=== PATIENT | male | born 1980 | race American Indian/Alaskan Native ===

== ENCOUNTER 2018-10-11 07:44 | Emergency (ER) | payer BC, OTHER ==
[2018-10-11] MEDS ORDERED: IBUPROFEN PO ONE (09:02)
[2018-10-11] MEDS ORDERED: NORCO 5/325 PO ONE (09:02)
[2018-10-11] MEDS ORDERED: ZOFRAN ODT PO ONE (09:02)
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
--- NOTE | 2018-10-11 09:45 | XRay Report ---
AP AND LATERAL CERVICAL SPINE: History: Neck pain. The vertebral bodies are well mineralized and normal in alignment and vertebral height with well preserved interspace distances. The visualized portions of the posterior elements are normal. IMPRESSION: Unremarkable cervical spine films.
[2018-10-11 12:31] VITALS: BP 152/132
== END 2018-10-11 12:32 | disposition home or self-care (01) ==
LOC: ED 07:44
DX: S16.1XXA Strain of muscle, fascia and tendon at neck level, initial encounter (principal); M54.6 Pain in thoracic spine; V49.49XA Driver injured in collision with other motor vehicles in traffic accident, initial encounter; Y93.89 Activity, other specified; Y92.89 Other specified places as the place of occurrence of the external cause; Y99.8 Other external cause status
CPT/HCPCS: 72040; Q0162

== ENCOUNTER 2019-08-04 19:03 | Emergency (ER) | payer BC ==
--- NOTE | 2019-08-04 19:51 | Event Note ---
ED Screening Note Date of service: 08/04/19 ED Screening Note: This initial assessment/diagnostic orders/clinical plan/treatment(s) is/are subject to change based on patients health status, clinical progression and re- assessment by fellow clinical providers in the ED. Further treatment and workup at subsequent clinical providers discretion. Patient/guardian urged not to elope from the ED as their condition may be serious if not clinically assessed and managed. Initial orders include: 38yo BM states that he has L upper jaw pain and swelling x 1 day. He states that he took NSAIDs earlier with no relief.
[2019-08-04] MEDS ORDERED: oxyCODONE /ACETAMINOPHEN 5-325MG TAB PO ONE (22:00)
[2019-08-04] MEDS ORDERED: AMOXICILLIN/K CLAV 875/125MG TAB PO ONE (22:00)
[2019-08-04] MEDS ORDERED: IBUPROFEN 600 MG TAB PO ONE (22:00)
--- NOTE | 2019-08-04 22:00 | Emergency Department Report ---
ED ENT HPI - General Chief complaint: Dental/Oral Stated complaint: TOOTHACHE W/FACIAL SWELLING Time Seen by Provider: 08/04/19 21:23 Source: patient Mode of arrival: Ambulatory Limitations: No Limitations - History of Present Illness Initial comments: This is a 38-year-old gentleman. This patient is not known to this provider previously. He presents to the emergency room with a complaint of a few days' dental pain, over teeth #12, 13, 14, associated facial swelling. He has no neck pain, tongue pain or throat pain. He does not endorse sensitivity to cold or hot. He has no mandibular pain. His pain is sharp and throbbing, increases with palpation and decreases with rest. He indicates he is able to eat and drink without significant difficulty. MD complaint: tooth pain -: Gradual, days(s) Location: tooth # (12,13,14) Severity: moderate Quality: aching Consistency: intermittent Improves with: rest Worsens with: eating, movement Context- Dental: history of dental caries Associated Symptoms: gum swelling, toothache. denies: fever, cough, pain with swallowing, sore throat, tinnitus, hearing loss, discharge from ear, rhinorrhea - Related Data Previous Rx's Medication Instructions Recorded Last Taken Type Cyclobenzaprine [Flexeril] 10 mg PO TID PRN #20 tablet 10/11/18 Unknown Rx HYDROcodone/APAP 5-325 [[place] 1 each PO Q4HR PRN #10 tablet 10/11/18 Unknown Rx 5/325] Ibuprofen 800 mg PO TID 5 Days #15 tablet 10/11/18 Unknown Rx Allergies Allergy/AdvReac Type Severity Reaction Status Date / Time No Known Allergies Allergy Unverified 10/11/18 07:49 ED Dental HPI - General Chief complaint: Dental/Oral Stated complaint: TOOTHACHE W/FACIAL SWELLING Time Seen by Provider: 08/04/19 21:23 Source: patient Mode of arrival: Ambulatory Limitations: No Limitations - Related Data Previous Rx's Medication Instructions Recorded Last Taken Type Cyclobenzaprine [Flexeril] 10 mg PO TID PRN #20 tablet 10/11/18 Unknown Rx HYDROcodone/APAP 5-325 [[place] 1 each PO Q4HR PRN #10 tablet 10/11/18 Unknown Rx 5/325] Ibuprofen 800 mg PO TID 5 Days #15 tablet 10/11/18 Unknown Rx Allergies Allergy/AdvReac Type Severity Reaction Status Date / Time No Known Allergies Allergy Unverified 10/11/18 07:49 ED Review of Systems ROS: Stated complaint: TOOTHACHE W/FACIAL SWELLING Other details as noted in HPI Constitutional: denies: fever ENT: dental pain. denies: ear pain, throat pain, congestion Cardiovascular: denies: syncope Gastrointestinal: denies: abdominal pain ED Past Medical Hx - Past Medical History Previous Medical History?: No - Surgical History Past Surgical History?: No - Social History Smoking Status: Light Tobacco Smoker - Medications Home Medications: Home Medications Medication Instructions Recorded Confirmed Last Taken Type Cyclobenzaprine [Flexeril] 10 mg PO TID PRN #20 tablet 10/11/18 Unknown Rx HYDROcodone/APAP 5-325 [[place] 1 each PO Q4HR PRN #10 tablet 10/11/18 Unknown Rx 5/325] Ibuprofen 800 mg PO TID 5 Days #15 tablet 10/11/18 Unknown Rx ED Physical Exam - General Limitations: No Limitations General appearance: alert, in no apparent distress - Head Head exam: Present: atraumatic, normocephalic - Eye Eye exam: Present: normal appearance, EOMI. Absent: nystagmus - ENT ENT exam: Present: mucous membranes moist, normal external ear exam, other (patient has a number of dental caries, poor dentition, and is tender over teeth 11, 12, 13, 14, 15. There is gingival tenderness. There is reactive left-sided buccal swelling and tenderness.). Absent: normal exam - Neck Neck exam: Present: normal inspection, full ROM, other (the neck is supple. The trachea is nontender. The patient speaking in full sentences. There is no tenderness underneath the base of the tongue.). Absent: tenderness, meningismus - Respiratory Respiratory exam: Present: normal lung sounds bilaterally. Absent: respiratory distress - Cardiovascular Cardiovascular Exam: Present: regular rate, normal rhythm, normal heart sounds. Absent: bradycardia, tachycardia, irregular rhythm, systolic murmur, diastolic murmur, rubs, gallop - GI/Abdominal GI/Abdominal exam: Present: soft. Absent: distended, tenderness, guarding, rebound, rigid, pulsatile mass - Rectal Rectal exam: Present: deferred - Extremities Exam Extremities exam: Present: normal inspection, full ROM, other (2+ pulses noted in the bilateral upper extremities. There is no long bony tenderness. Muscular compartments are soft.) - Back Exam Back exam: Present: normal inspection, full ROM. Absent: tenderness, CVA tenderness (R), CVA tenderness (L), paraspinal tenderness, vertebral tenderness - Neurological Exam Neurological exam: Present: alert, other (there is no facial droop. The tongue is midline. Extraocular movements are intact bilaterally. Patient speaking in full complete sentences. Shoulder shrug is intact bilaterally. Hearing is grossly intact bilaterally. Visual acuity intact to finger counting and color perception at a close distance. 5/5 strength 4 extremities. Sensation intact to light touch in 4 extremities.) - Psychiatric Psychiatric exam: Present: normal affect, normal mood - Skin Skin exam: Present: warm, dry, intact, normal color. Absent: rash ED Course Vital Signs 08/04/19 08/04/19 08/04/19 19:33 19:47 22:22 Temperature 98.3 F 98.8 F Pulse Rate 89 90 Respiratory 16 18 18 Rate Blood Pressure 188/99 160/100 O2 Sat by Pulse 97 97 Oximetry 08/04/19 22:23 Temperature Pulse Rate Respiratory 18 Rate Blood Pressure O2 Sat by Pulse Oximetry ED Medical Decision Making - Lab Data Vital Signs 08/04/19 08/04/19 08/04/19 19:33 19:47 22:22 Temperature 98.3 F 98.8 F Pulse Rate 89 90 Respiratory 16 18 18 Rate Blood Pressure 188/99 160/100 O2 Sat by Pulse 97 97 Oximetry 08/04/19 22:23 Temperature Pulse Rate Respiratory 18 Rate Blood Pressure O2 Sat by Pulse Oximetry - Medical Decision Making Differential diagnosis, including but not limited to: Dental caries, gingivitis, odontogenic infection, hypertension, reactive elevated blood pressure Assessment and plan: 38-year-old gentleman with probable dental infection, with reactive soft tissue swelling. He is afebrile with otherwise reassuring vital signs. Hypertension is improving on its own without significant intervention. Please reference the [employer] clinical policy on hypertension which is not acutely symptomatic or decompensated. The patient has no indication of deep space neck infection at this time, he is protecting his airway, and there is no neck pain, tenderness or discomfort. He will be started on antibiotics, chlorhexidine mouthwash, we will give him pain medicine, he was strongly encouraged to follow-up with an outpatient oral surgeon for definitive management. At this point time, does not require emergent transfer, or emergent consultation. Critical care attestation.: If time is entered above; I have spent that time in minutes in the direct care of this critically ill patient, excluding procedure time. ED Disposition Clinical Impression: Dentalgia, Dental caries, Elevated blood pressure reading Disposition: TO HOME OR SELFCARE Is pt being admited?: No Does the pt Need Aspirin: No Condition: Stable Additional Instructions: Take the pain medication as needed and directed, antibiotics as directed, chlorhexidine mouthwash as directed. Follow-up in the next 2-3 days with an outpatient oral surgeon. Patient may follow-up with the [place] oral surgery department as follows: [facility] [address] [place] [address] [address] Floor[address] Wednesday: 11 AM - 4:30 PM Wednesday: 8 AM - 4:30 PM Every other : 8 AM - 4:30 PM Every other Wednesday: 8 AM - 4:30 PM (Main) (Appointments) The patient will have to call to make an appointment. In addition, patient was found to have elevated blood pressure while here in the emergency department. Patient should follow-up with the primary medical doctor to have this checked out and reevaluated within the next 4-6 weeks. Return to the emergency room right away with projectile vomiting, change in mental status, confusion, inability to tolerate liquid feeds, new, worsened or different symptoms not present on the initial emergency room evaluation. Presented to the emergency room right away with neck pain, neck stiffness, throat pain, pain underneath the base of the tongue. Referrals: [facility] [Outside] - 3-5 Days [facility] [Provider Group] - 3-5 Days
[2019-08-05 00:21] VITALS: BP 156/81
== END 2019-08-04 23:20 | disposition home or self-care (01) ==
LOC: ED 19:03
DX: K02.9 Dental caries, unspecified (principal); R03.0 Elevated blood-pressure reading, without diagnosis of hypertension; F17.200 Nicotine dependence, unspecified, uncomplicated; Z79.899 Other long term (current) drug therapy
CPT/HCPCS: 99282